=== PATIENT | male | born 1985 | race Caucasian/White ===

== ENCOUNTER 2021-02-19 07:12 | Emergency (ER) | payer SELFPAY ==
[2021-02-19 07:54] LABS: CHLORIDE,CL 107 mmol/L (98-107); SODIUM,NA 141 mmol/L (136-145)
[2021-02-19] MEDS: Sodium Chloride 0.9% 1,000 ML IV ONE (08:23)
[2021-02-19] MEDS: Iopamidol 612 MG/ML 100 ML Bottle IVPUSH ONE (08:50)
--- NOTE | 2021-02-19 10:12 | EDM.PDOC ---
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 [No Known Home Meds] 11/14/16 [History] Past Medical History - Infectious Disease History Infectious Disease History: Reports: Chicken Pox, Influenza - Past Surgical History Other Musculoskeletal Surgeries/Procedures:: surgery to left knee Social & Family History - Family History Family Medical History: No Pertinent Family History - Tobacco Use Tobacco Use Status *Q: Heavy Tobacco User Years of Tobacco use: 26 Packs/Tins Daily: 0.5 Used Tobacco, but Quit: No Second Hand Smoke Exposure: Yes - Caffeine Use Caffeine Use: Reports: Energy Drinks Caffeine Use Comment: 2 daily when consumes - usually does not drink them - Alcohol Use Days Per Week of Alcohol Use: 5 Number of Drinks Per Day: 2 Total Drinks Per Week: 10 Date of Last Drink: 02/18/21 Time of Last Drink: 21:00 - Recreational Drug Use Recreational Drug Use: Yes Drug Use in Last 12 Months: Yes Recreational Drug Type: Reports: Marijuana/Hashish Recreational Drug Use Frequency: Weekly ED ROS GENERAL - Review of Systems Review Of Systems: See Below Constitutional: Reports: Fever, Chills Respiratory: Reports: No Symptoms Cardiovascular: Reports: No Symptoms GI/Abdominal: Reports: Abdominal Pain : Reports: No Symptoms Musculoskeletal: Reports: No Symptoms ED EXAM, GI/ABD - Physical Exam Exam: See Below Exam Limited By: No Limitations General Appearance: Alert, WD/WN, Mild Distress Throat/Mouth: Normal Oropharynx Neck: Supple Respiratory/Chest: Lungs Clear Cardiovascular: Regular Rate, Rhythm GI/Abdominal Exam: Soft, No Distention, No Mass, Tender (Tender across low abdomen) Extremities: Normal Inspection Neurological: Alert, Oriented Psychiatric: Normal Affect, Normal Mood Course - Vital Signs Last Recorded V/S: Last Vital Signs Temp 97.9 F 02/19/21 07:15 Pulse 65 02/19/21 07:15 Resp 20 02/19/21 07:15 BP 138/78 02/19/21 07:25 Pulse Ox 100 02/19/21 07:15 - Orders/Labs/Meds Orders: Active Orders 24 hr Category Date Time Status Abdomen Pelvis w Cont [CT] Stat Exams 02/19/21 08:18 Taken CORONAVIRUS COVID-19 AG [CHEM] Stat Lab 02/19/21 09:59 Ordered Ciprofloxacin in D5W [Cipro in D5W 400 MG/200 ML] 400 Med 02/19/21 09:58 Active mg Premix Bag 1 bag IV ONETIME metroNIDAZOLE/Normal Saline [Flagyl in NS 500 MG/100 ML Med 02/19/21 09:58 Active ] 500 mg Premix Bag 1 bag IV ONETIME Medication Orders Ciprofloxacin/Dextrose 400 mg/ (Premix) 200 mls @ 200 mls/hr IV ONETIME ONE Stop: 02/19/21 10:57 Metronidazole 500 mg/ Premix 100 mls @ 100 mls/hr IV ONETIME ONE Stop: 02/19/21 10:57 Labs: Laboratory Tests 02/19/21 02/19/21 02/19/21 Range/Units 07:28 07:28 08:00 WBC 13.5 H (4.0-10.2) K/uL RBC 4.89 (4.33-5.41) M/uL Hgb 15.1 (13.1-16.8) g/dL Hct 45.9 (39.0-49.0) % MCV 93.9 (84.0-98.0) fL MCH 30.9 (28.2-33.3) pg MCHC 32.9 (31.7-36.0) g/dL RDW 13.2 (11.2-14.1) % Plt Count 234 (150-350) K/uL Neut % (Auto) 74.4 (45.0-80.0) % Lymph % (Auto) 13.7 (10.0-50.0) % [place] % (Auto) 11.0 (2.0-14.0) % Eos % (Auto) 0.6 (0.0-5.0) % Baso % (Auto) 0.3 (0.0-2.0) % Neut # (Auto) 10.05 H (1.40-7.00) K/uL Lymph # (Auto) 1.85 (0.50-3.50) K/uL [place] # (Auto) 1.49 H (0.00-1.00) K/uL Eos # (Auto) 0.08 (0.00-0.50) K/uL Baso # (Auto) 0.04 (0.00-0.20) K/uL Sodium 141 (136-145) mmol/L Potassium 4.1 (3.5-5.1) mmol/L Chloride 107 (98-107) mmol/L Carbon Dioxide 26.3 (21.0-32.0) mmol/L BUN 14 (7-18) mg/dL Creatinine 0.83 (0.51-1.17) mg/dL Est Cr Clr Drug Dosing TNP Estimated GFR (MDRD) > 60 mL/min Glucose 114 H (70-99) mg/dL Calcium 8.5 (8.5-10.1) mg/dL Total Bilirubin 2.0 H (0.2-1.0) mg/dL AST 21 (15-37) U/L ALT 34 (12-78) U/L Alkaline Phosphatase 64 (46-116) IU/L Total Protein 7.0 (6.4-8.2) g/dL Albumin 3.6 (3.4-5.0) g/dL Specimen Type Urinvoid Urine Color Dark yellow Urine Appearance Clear Urine pH 6.0 (5.0-9.0) Ur Specific [place] >= 1.030 (1.005-1.030) Urine Protein Negative (NEGATIVE) mg/dL Urine Glucose (UA) Negative (NEGATIVE) mg/dL Urine Ketones Negative (NEGATIVE) mg/dL Urine Occult Blood Negative (NEGATIVE) Urine Nitrite Negative (NEGATIVE) Urine Bilirubin Negative (NEGATIVE) Urine Urobilinogen 1.0 (0.2-1.0) E.U./dL Ur Leukocyte Esterase Negative (NEGATIVE) Urine RBC 0-5 /HPF Urine WBC 0-5 /HPF Ur Epithelial Cells Few /LPF Urine Bacteria Few (NONE TO FEW) /HPF Urine Mucus Many H (NEGATIVE) /LPF Meds: Medications Generic Name Dose Route Start Last Admin Trade Name Freq PRN Reason Stop Dose Admin Ciprofloxacin/Dextrose 400 mg/ 200 mls @ 200 mls/hr 02/19/21 09:58 Premix IV 02/19/21 10:57 ONETIME ONE Metronidazole 500 mg/ Premix 100 mls @ 100 mls/hr 02/19/21 09:58 IV 02/19/21 10:57 ONETIME ONE Discontinued Medications Generic Name Dose Route Start Last Admin Trade Name Freq PRN Reason Stop Dose Admin Sodium Chloride 1,000 mls @ 1,000 mls/hr 02/19/21 08:19 02/19/21 08:23 Normal Saline IV 02/19/21 09:18 1,000 mls/hr .BOLUS ONE Administration Iopamidol 100 ml 02/19/21 08:24 02/19/21 08:50 Iopamidol 612 Mg/Ml 100 Ml Bottle IVPUSH 02/19/21 08:25 100 ml ONETIME ONE Administration Iopamidol Confirm 02/19/21 08:29 Iopamidol 612 Mg/Ml 100 Ml Bottle Administered 02/19/21 08:30 Dose 100 ml .ROUTE .STK-MED ONE - Re-Assessments/Exams Free Text/Narrative Re-Assessment/Exam: 02/19/21 10:[address] per radiologist Sigmoid diverticulitis with local perforation Air seen outside of colon D/W Dr Whyte [facility] Will accept in transfer Pt given Zosyn in ER Pt declines ambulance transfer Risks and benefits d/w pt and he still desires to go by private car Departure - Departure Time of Disposition: 10:15 Disposition: DC/Tfer to Acute Hospital 02 Clinical Impression: Perforation of sigmoid colon due to diverticulitis - Discharge Information Referrals: PCP,Unknown [Primary Care Provider] - Sepsis Event Note (ED) - Evaluation Sepsis Screening Result: No Definite Risk - Focused Exam Vital Signs: Vital Signs Temp Pulse Resp BP Pulse Ox 02/19/21 07:25 138/78 02/19/21 07:15 97.9 F 65 20 152/89 H 100 - My Orders Last 24 Hours: My Active Orders 02/19/21 08:18 Abdomen Pelvis w Cont [CT] Stat 02/19/21 09:58 Ciprofloxacin in D5W [Cipro in D5W 400 MG/200 ML] 400 mg Premix Bag 1 bag IV ONETIME metroNIDAZOLE/Normal Saline [Flagyl in NS 500 MG/100 ML] 500 mg Premix Bag 1 bag IV ONETIME 02/19/21 09:59 CORONAVIRUS COVID-19 AG [CHEM] Stat - Assessment/Plan Last 24 Hours: My Active Orders 02/19/21 08:18 Abdomen Pelvis w Cont [CT] Stat 02/19/21 09:58 Ciprofloxacin in D5W [Cipro in D5W 400 MG/200 ML] 400 mg Premix Bag 1 bag IV ONETIME metroNIDAZOLE/Normal Saline [Flagyl in NS 500 MG/100 ML] 500 mg Premix Bag 1 bag IV ONETIME 02/19/21 09:59 CORONAVIRUS COVID-19 AG [CHEM] Stat
[2021-02-19] MEDS ORDERED: Piperacillin/Tazobactam 3.375 GM in Sodium Chloride 0.9% 100 ML IV SCH (10:15)
[2021-02-19] MEDS: Ciprofloxacin in D5W 400 MG in Premix Bag 1 BAG IV ONE ×2 (10:21)
[2021-02-19] MEDS: Piperacillin/Tazobactam 3.375 GM in Sodium Chloride 0.9% 100 ML IV ONE (10:21)
[2021-02-19] MEDS: metroNIDAZOLE/Normal Saline 500 MG in Premix Bag 1 BAG IV ONE (10:22)
[2021-02-19] MEDS: Iopamidol 612 MG/ML 100 ML Bottle ONE (10:22)
[2021-02-19 10:34] VITALS: BP 149/89; PULSE 64
== END 2021-02-19 11:10 ==
LOC: LL.ED 07:12
DX: K57.20 Diverticulitis of large intestine with perforation and abscess without bleeding (principal); Z20.822 Contact with and (suspected) exposure to COVID-19; Z88.5 Allergy status to narcotic agent; Z72.0 Tobacco use
CPT/HCPCS: 36415; 74177; 80053; 81001; 85025; 87635; 96365; 99284; 99285; J2543; J7030; Q9967; U0002

== ENCOUNTER 2021-05-05 20:38 | Emergency (ER) | payer BC ==
[2021-05-05] MEDS ORDERED: fentaNYL 50 MCG/ML SDV IVPUSH ONE ×2 (21:00→22:48)
[2021-05-05] MEDS: Sodium Chloride 0.9% 10 ML Syringe FLUSH PRN ×2 (21:10→23:00)
[2021-05-05 21:36] LABS: CHLORIDE,CL 104 mmol/L (98-107); SODIUM,NA 144 mmol/L (136-145)
[2021-05-05] MEDS ORDERED: Iopamidol 612 MG/ML 100 ML Bottle IVPUSH STA (21:37)
--- NOTE | 2021-05-05 21:38 | EDM.PDOC ---
ED HPI GENERAL MEDICAL PROBLEM - General Chief Complaint: General Stated Complaint: ABDOMINAL PAIN Time Seen by Provider: 05/05/21 21:17 Source of Information: Reports: Patient - History of Present Illness INITIAL COMMENTS - FREE TEXT/NARRATIVE: Jozef is a 35 y/o male who presents to the ER with lower abdominal pain that started about 2:30 pm today. He reported having 4 normal BMs this AM and then ab out 2:30 pm her started to have liquid stools that were clear with yellow flecks of stool about every hour. He denied any fever. He did eat today, but his appetite was decreased. No vomiting. He was hospitalized in January 2021 at with Acute Diverticulitis. He has not had any problems since that flare. Bilateral Lower Abdomen Pain Score (Numeric/FACES): 7 - Related Data Allergies Allergy/AdvReac Type Severity Reaction Status Date / Time hydrocodone [From Vicodin] Allergy Hives Verified 05/05/21 20:58 Home Meds: Home Meds Ciprofloxacin HCl [Cipro] 500 mg PO BID #20 tablet 05/05/21 [Rx] Ondansetron [Zofran Odt] 8 mg PO Q8H PRN #10 tab.rapdis 05/05/21 [Rx] metroNIDAZOLE [Flagyl] 500 mg PO Q8H 10 Days #30 tab 05/05/21 [Rx] traMADol [Ultram] 50 mg PO Q6H PRN #10 tab 05/05/21 [Rx] Past Medical History - Infectious Disease History Infectious Disease History: Reports: Chicken Pox, Influenza - Past Surgical History Other Musculoskeletal Surgeries/Procedures:: surgery to left knee Social & Family History - Family History Family Medical History: No Pertinent Family History - Tobacco Use Tobacco Use Status *Q: Current Every Day Tobacco User Years of Tobacco use: 26 Packs/Tins Daily: 0.5 Second Hand Smoke Exposure: No - Caffeine Use Caffeine Use: Reports: Energy Drinks Caffeine Use Comment: 2 daily when consumes - usually does not drink them - Recreational Drug Use Recreational Drug Use: No Recreational Drug Type: Reports: Marijuana/Hashish Recreational Drug Use Frequency: Daily ED ROS GENERAL - Review of Systems Review Of Systems: See Below Constitutional: Reports: Malaise, Decreased Appetite HEENT: Reports: No Symptoms Respiratory: Reports: No Symptoms Cardiovascular: Reports: No Symptoms Endocrine: Reports: No Symptoms GI/Abdominal: Reports: Abdominal Pain, Diarrhea, Decreased Appetite. Denies: Nausea, Vomiting : Reports: No Symptoms Musculoskeletal: Reports: No Symptoms Skin: Reports: No Symptoms Neurological: Reports: No Symptoms Psychiatric: Reports: No Symptoms Hematologic/Lymphatic: Reports: No Symptoms Immunologic: Reports: No Symptoms ED EXAM, GENERAL - Physical Exam Exam: See Below General Appearance: Alert, WD/WN, No Apparent Distress (Adult male) Ears: Hearing Grossly Normal Nose: Normal Inspection Throat/Mouth: Normal Inspection, Normal Voice Head: Atraumatic, Normocephalic Neck: Supple Respiratory/Chest: No Respiratory Distress, Lungs Clear, Chest Non-Tender Cardiovascular: Normal Peripheral Pulses, Regular Rate, Rhythm, No Murmur GI/Abdominal: Soft, No Distention, Other (Bowels sounds hypoactive in the LLQ, no rebound tenderness) (Male) Exam: Deferred Rectal (Males) Exam: Deferred Back Exam: Normal Inspection, Paraspinal Tenderness Extremities: Normal Range of Motion, No Pedal Edema, Normal Capillary Refill Neurological: Alert, Oriented, CN II-XII Intact, Normal Cognition, No Motor/Sensory Deficits Psychiatric: Normal Affect, Normal Mood Skin Exam: Warm, Dry, Intact, Normal Color Course - Vital Signs Text/Narrative:: 2116 The patient was seen by the CARE PROGRAM RESIDENT. Labs ordered. He was given Fentanyl 50mcg IVP for pain. 2129 Noted WBC 22.3, Neuts=84.8%, UA Protein trace. Additional labs ordered including Lactic Acid, BC x 2. 2240 CT results pending. BP elevated, cannot recall BP med, but he frequently forgets it. Lisinopril 20mg po given. Abdominal pain returning, Fentanyl 50mcg IVP repeated and Toradol 30mg IVP given for pain. Will given Cipro 400mg IVPB. 2344 CT reviewed. Results reviewed with pt, note early diverticulitis. Will given Flagyl 500mg po x 1 dose. Will then send home with oral abx, pain meds, and antiemetics. Patient reported improvement in his pain. He was given written discharge instructions left the ER in stable condition. Last Recorded V/S: Last Vital Signs Temp 37.3 C 05/05/21 20:39 Pulse 68 05/05/21 22:53 Resp 16 05/05/21 22:53 BP 167/91 H 05/05/21 22:53 Pulse Ox 99 05/05/21 22:53 - Orders/Labs/Meds Orders: Active Orders 24 hr Category Date Time Status Abdomen Pelvis w Cont [CT] Stat Exams 05/05/21 21:24 Taken CULTURE BLOOD [BC] Stat Lab 05/05/21 21:30 Received CULTURE BLOOD [BC] Stat Lab 05/05/21 21:40 Received Sodium Chloride 0.9% [Saline Flush] Med 05/05/21 21:00 Active 10 ml FLUSH ASDIRECTED PRN Blood Culture x2 Reflex Set [OM.PC] Stat Oth 05/05/21 21:24 Ordered Saline Lock Insert [OM.PC] Routine Oth 05/05/21 21:00 Ordered Medication Orders Sodium Chloride (Sodium Chloride 0.9% 10 Ml Syringe) 10 ml FLUSH ASDIRECTED PRN PRN Reason: Keep Vein Open Last Admin: 05/05/21 21:10 Dose: 10 ml Documented by: VIJAY Labs: Laboratory Tests 05/05/21 05/05/21 05/05/21 Range/Units 21:00 21:05 21:05 WBC 22.3 H (4.0-10.2) K/uL RBC 5.35 (4.33-5.41) M/uL Hgb 16.5 (13.1-16.8) g/dL Hct 47.2 (39.0-49.0) % MCV 88.2 (84.0-98.0) fL MCH 30.8 (28.2-33.3) pg MCHC 35.0 (31.7-36.0) g/dL RDW 13.1 (11.2-14.1) % Plt Count 279 (150-350) K/uL Neut % (Auto) 84.8 H (45.0-80.0) % Lymph % (Auto) 7.6 L (10.0-50.0) % [place] % (Auto) 7.4 (2.0-14.0) % Eos % (Auto) 0.1 (0.0-5.0) % Baso % (Auto) 0.1 (0.0-2.0) % Neut # (Auto) 18.89 H (1.40-7.00) K/uL Lymph # (Auto) 1.70 (0.50-3.50) K/uL [place] # (Auto) 1.65 H (0.00-1.00) K/uL Eos # (Auto) 0.02 (0.00-0.50) K/uL Baso # (Auto) 0.03 (0.00-0.20) K/uL Sodium 144 (136-145) mmol/L Potassium 3.9 (3.5-5.1) mmol/L Chloride 104 (98-107) mmol/L Carbon Dioxide 25.1 (21.0-32.0) mmol/L BUN 15 (7-18) mg/dL Creatinine 0.82 (0.51-1.17) mg/dL Est Cr Clr Drug Dosing 162.55 mL/min Estimated GFR (MDRD) > 60 mL/min Glucose 105 H (70-99) mg/dL Lactic Acid (0.4-2.0) mmol/L Calcium 9.2 (8.5-10.1) mg/dL Total Bilirubin 2.5 H (0.2-1.0) mg/dL AST 24 (15-37) U/L ALT 32 (12-78) U/L Alkaline Phosphatase 72 (46-116) IU/L Total Protein 8.0 (6.4-8.2) g/dL Albumin 4.4 (3.4-5.0) g/dL Specimen Type Urinvoid Urine Color Yellow (YELLOW) Urine Appearance Clear (CLEAR) Urine pH 6.0 (5.0-9.0) Ur Specific [place] 1.025 (1.005-1.030) Urine Protein Trace H (NEGATIVE) mg/dL Urine Glucose (UA) Negative (NEGATIVE) mg/dL Urine Ketones Negative (NEGATIVE) mg/dL Urine Occult Blood Negative (NEGATIVE) Urine Nitrite Negative (NEGATIVE) Urine Bilirubin Negative (NEGATIVE) Urine Urobilinogen 1.0 (0.2-1.0) E.U./dL Ur Leukocyte Esterase Negative (NEGATIVE) Urine RBC 0-5 /HPF Urine WBC 0-5 /HPF Ur Epithelial Cells Few /LPF Urine Bacteria Rare (NONE TO FEW) /HPF Urine Mucus Moderate H (NEGATIVE) /LPF 05/05/ Range/Units 21:05 WBC (4.0-10.2) K/uL RBC (4.33-5.41) M/uL Hgb (13.1-16.8) g/dL Hct (39.0-49.0) % MCV (84.0-98.0) fL MCH (28.2-33.3) pg MCHC (31.7-36.0) g/dL RDW (11.2-14.1) % Plt Count (150-350) K/uL Neut % (Auto) (45.0-80.0) % Lymph % (Auto) (10.0-50.0) % [place] % (Auto) (2.0-14.0) % Eos % (Auto) (0.0-5.0) % Baso % (Auto) (0.0-2.0) % Neut # (Auto) (1.40-7.00) K/uL Lymph # (Auto) (0.50-3.50) K/uL [place] # (Auto) (0.00-1.00) K/uL Eos # (Auto) (0.00-0.50) K/uL Baso # (Auto) (0.00-0.20) K/uL Sodium (136-145) mmol/L Potassium (3.5-5.1) mmol/L Chloride (98-107) mmol/L Carbon Dioxide (21.0-32.0) mmol/L BUN (7-18) mg/dL Creatinine (0.51-1.17) mg/dL Est Cr Clr Drug Dosing mL/min Estimated GFR (MDRD) mL/min Glucose (70-99) mg/dL Lactic Acid 1.2 (0.4-2.0) mmol/L Calcium (8.5-10.1) mg/dL Total Bilirubin (0.2-1.0) mg/dL AST (15-37) U/L ALT (12-78) U/L Alkaline Phosphatase (46-116) IU/L Total Protein (6.4-8.2) g/dL Albumin (3.4-5.0) g/dL Specimen Type Urine Color (YELLOW) Urine Appearance (CLEAR) Urine pH (5.0-9.0) Ur Specific [place] (1.005-1.030) Urine Protein (NEGATIVE) mg/dL Urine Glucose (UA) (NEGATIVE) mg/dL Urine Ketones (NEGATIVE) mg/dL Urine Occult Blood (NEGATIVE) Urine Nitrite (NEGATIVE) Urine Bilirubin (NEGATIVE) Urine Urobilinogen (0.2-1.0) E.U./dL Ur Leukocyte Esterase (NEGATIVE) Urine RBC /HPF Urine WBC /HPF Ur Epithelial Cells /LPF Urine Bacteria (NONE TO FEW) /HPF Urine Mucus (NEGATIVE) /LPF Meds: Medications Generic Name Dose Route Start Last Admin Trade Name Freq PRN Reason Stop Dose Admin Sodium Chloride 10 ml 05/05/21 21:00 05/05/21 23:00 Sodium Chloride 0.9% 10 Ml Syringe FLUSH 10 ml ASDIRECTED PRN Administration Keep Vein Open Discontinued Medications Generic Name Dose Route Start Last Admin Trade Name Freq PRN Reason Stop Dose Admin Fentanyl 50 mcg 05/05/21 21:00 05/05/21 21:10 Fentanyl 50 Mcg/Ml Sdv IVPUSH 05/05/21 21:01 50 mcg ONETIME ONE Administration Fentanyl 50 mcg 05/05/21 22:41 05/05/21 23:15 Fentanyl 100 Mcg/2 Ml Sdv IVPUSH 05/05/21 22:42 Not Given ONETIME ONE Fentanyl 50 mcg 05/05/21 22:48 05/05/21 23:00 Fentanyl 50 Mcg/Ml Sdv IVPUSH 05/05/21 22:49 50 mcg ONETIME ONE Administration Ciprofloxacin/Dextrose 400 mg/ 200 mls @ 200 mls/hr 05/05/21 22:40 05/05/21 23:09 Premix IV 05/05/21 23:39 200 mls/hr ONETIME ONE Administration Iopamidol 100 ml 05/05/21 21:37 05/05/21 21:55 Iopamidol 612 Mg/Ml 100 Ml Bottle IVPUSH 05/05/21 21:38 100 ml ONETIME STA Administration Ketorolac Tromethamine 30 mg 05/05/21 22:41 05/05/21 22:49 Ketorolac 30 Mg/Ml Sdv IVPUSH 05/05/21 22:42 30 mg ONETIME ONE Administration Lisinopril 20 mg 05/05/21 22:28 05/05/21 22:35 Lisinopril 10 Mg Tab PO 05/05/21 22:29 20 mg ONETIME ONE Administration - Radiology Interpretation Free Text/Narrative:: CT Abd/Pelvis W=notes early diverticulitis, (See final report) Departure - Departure Time of Disposition: 23:50 Disposition: Home, Self-Care 01 Condition: Good Clinical Impression: Diverticulitis - Discharge Information *PRESCRIPTION DRUG MONITORING PROGRAM REVIEWED*: No *COPY OF PRESCRIPTION DRUG MONITORING REPORT IN PATIENT YVES: No Prescriptions: Ciprofloxacin HCl [Cipro] 500 mg PO BID #20 tablet metroNIDAZOLE [Flagyl] 500 mg PO Q8H 10 Days #30 tab traMADol [Ultram] 50 mg PO Q6H PRN #10 tab PRN Reason: Pain Ondansetron [Zofran Odt] 8 mg PO Q8H PRN #10 tab.rapdis PRN Reason: Nausea Instructions: Diverticulitis Referrals: PCP,Unknown [Ordering Only Provider] - 2 Days Forms: ED Department Discharge, ED Return to Work/School Form Additional Instructions: -Cipro 500mg oral 2x daily for 10 days #20(Rx) -Flagyl 500mg oral 3x daily for 10 days #30(Rx) -Tramadol 50mg oral every 6 hours as needed for pain #10(ER) -Ondanestron ODT 8mg oral every 8 hours as needed for nausea #10(ER) -Also may use ibuprofen or acetaminophen as needed for pain -Eat a light, non-irritating diet. See Diverticular diet guidelines. -Rest as needed -Make an appt to see your PCP at the [facility] in 2-3 days for a follow up and repeat labs. Sepsis Event Note (ED) - Evaluation Sepsis Screening Result: No Definite Risk - Focused Exam Vital Signs: Vital Signs Temp Pulse Resp BP BP Pulse Ox 05/05/21 22:53 68 16 167/91 H 99 05/05/21 22:35 179/92 H 05/05/21 22:23 72 18 179/92 H 99 05/05/21 21:53 64 16 179/114 H 99 05/05/21 21:27 73 18 152/100 H 96 05/05/21 21:13 73 16 170/91 H 99 05/05/21 20:53 77 16 163/96 H 98 05/05/21 20:42 80 18 171/113 H 98 05/05/21 20:39 37.3 C 76 18 171/113 H 97 - My Orders Last 24 Hours: My Active Orders 05/05/21 21:00 Sodium Chloride 0.9% [Saline Flush] 10 ml FLUSH ASDIRECTED PRN Saline Lock Insert [OM.PC] Routine 05/05/21 21:24 Abdomen Pelvis w Cont [CT] Stat Blood Culture x2 Reflex Set [OM.PC] Stat 05/05/21 21:30 CULTURE BLOOD [BC] Stat 05/05/21 21:40 CULTURE BLOOD [BC] Stat - Assessment/Plan Last 24 Hours: My Active Orders 05/05/21 21:00 Sodium Chloride 0.9% [Saline Flush] 10 ml FLUSH ASDIRECTED PRN Saline Lock Insert [OM.PC] Routine 05/05/21 21:24 Abdomen Pelvis w Cont [CT] Stat Blood Culture x2 Reflex Set [OM.PC] Stat 05/05/21 21:30 CULTURE BLOOD [BC] Stat 05/05/21 21:40 CULTURE BLOOD [BC] Stat Assessment:: 1)Diverticulitis Plan: As above
[2021-05-05] MEDS ORDERED: Lisinopril 10 MG Tab PO ONE (22:28)
[2021-05-05] MEDS ORDERED: Ciprofloxacin in D5W 400 MG in Premix Bag 1 BAG IV ONE ×2 (22:40)
[2021-05-05] MEDS ORDERED: fentaNYL 100 MCG/2 ML SDV IVPUSH ONE (22:41)
[2021-05-05] MEDS ORDERED: Ketorolac 30 MG/ML SDV IVPUSH ONE (22:41)
[2021-05-06 00:40] VITALS: BP 171/90; PULSE 69
== END 2021-05-06 00:20 | disposition home or self-care (01) ==
LOC: LL.ED 20:38
DX: K57.32 Diverticulitis of large intestine without perforation or abscess without bleeding (principal); Z72.0 Tobacco use; Z88.5 Allergy status to narcotic agent
CPT/HCPCS: 36415; 74177; 80053; 81001; 83605; 85025; 87040; 87077; 96365; 96375; 96376; 99284; 99284-25; A9270-GY; J0744; J1885; J3010; Q9967

== ENCOUNTER 2021-05-29 08:54 | Day surgery (SDC) | payer BC ==
[~2021-05-29 08:54] MED LIST: Propofol 200 MG/20 ML SDV ONE
[2021-05-29] MEDS: Lactated Ringers 1,000 ML IV SCH (09:32)
--- NOTE | 2021-05-29 11:04 | PCM.PN ---
- General Info Date of Service: 05/29/21 - Review of Systems Systems Review Comment:: 35-year-old male with history of intermittent rectal bleeding as well as history of diverticulitis referred for colonoscopy. His last colon exam was about 5 years ago. There is a known family history of diverticular disease. The proposed colonoscopy is discussed with the patient. Risks such as but not limited to bleeding and GI injury reviewed. He agrees to proceed. Recent history and physical is reviewed and no significant changes are noted. - Patient Data Vitals - Most Recent: Last Vital Signs Temp 98.2 F 05/29/21 08:00 Pulse 54 L 05/29/21 08:00 Resp 20 05/29/21 08:00 BP 133/92 H 05/29/21 08:00 Pulse Ox 96 05/29/21 08:00 Weight - Most Recent: 104.78 kg Med Orders - Current: Current Medications Lactated Ringer's (Ringers, Lactated) 1,000 mls @ 125 mls/hr IV ASDIRECTED [facility] Last Admin: 05/29/21 09:32 Dose: 125 mls/hr Documented by: Discontinued Medications Propofol (Propofol 200 Mg/20 Ml Sdv) Confirm Administered Dose 400 mg .ROUTE .STK-MED ONE Stop: 05/29/21 08:14 Sepsis Event Note - Focused Exam Vital Signs: Vital Signs Temp Pulse Resp BP Pulse Ox 05/29/21 08:00 98.2 F 54 L 20 133/92 H 96 - Problem List Review Problem List Initiated/Reviewed/Updated: Yes - Assessment Assessment:: History of rectal bleeding History of diverticulitis - Plan Plan:: Colonoscopy
[2021-05-29] MEDS ORDERED: Propofol 200 MG/20 ML SDV ONE ×2 (11:12→11:47)
--- NOTE | 2021-05-29 11:48 | PCM.OPNOTE ---
- General Post-Op/Procedure Note Date of Surgery/Procedure: 05/29/21 Operative Procedure(s): Colonoscopy Findings: Moderate degree of sigmoid diverticulosis without acute inflammation stricturing or other complication Colon and terminal ileum otherwise normal Pre Op Diagnosis: Abdominal pain. Rectal bleeding Post-Op Diagnosis: Sigmoid diverticulosis Anesthesia Technique: MAC Primary Surgeon: Calos Francisco Pathology: none EBL in mLs: 0 Complications: None Condition: Good
--- NOTE | 2021-05-29 12:13 | OR ---
Date of Procedure: 05/29/2021 PREOPERATIVE DIAGNOSES: 1. Rectal bleeding. 2. History of abdominal pain. POSTOPERATIVE DIAGNOSIS: Sigmoid diverticulosis. OPERATION PERFORMED: Colonoscopy. INDICATIONS FOR SURGERY: This 35-year-old male has had recent episodes of presumed diverticulitis with abdominal pain requiring hospitalization. He also has episodes of rectal bleeding. FINDINGS: The patient has in the sigmoid colon region a moderate degree of diverticulosis. Multiple diverticula are seen, although there is no acute inflammation or stricturing at this time. The remainder of the colon and rectum appear normal. The terminal ileum also appears normal. DESCRIPTION OF PROCEDURE: The patient was taken to the operating room. He was given intravenous sedation, and with him in the left lateral decubitus position, digital rectal exam was performed showing no rectal masses. The Olympus colonoscope was inserted into the rectum. Retroflexed examination of the rectal canal was performed. The scope was then carefully advanced through the entire length of the colon until the cecum was reached. Cecal acquisition was confirmed by noting the normal internal cecal anatomy including the appendiceal orifice and the ileocecal valve. The ileocecal valve was cannulated and the terminal ileum examined and appeared normal. The scope was then slowly withdrawn sequentially re-examining the colonic segments until the entire colon and rectum had been fully examined. The scope was removed, and the patient was taken from the operating room in satisfactory condition. ESTIMATED BLOOD LOSS: 0. COMPLICATIONS: None. PROGNOSIS: Good. TIFFANI Francisco MD /[id number]
[2021-05-29 16:19] VITALS: BP 140/76; PULSE 51
== END 2021-05-29 12:42 | disposition home or self-care (01) ==
LOC: LL.SDS 08:54
PROVIDERS: ATTEND Surgery
DX: K57.31 Diverticulosis of large intestine without perforation or abscess with bleeding (principal); G43.909 Migraine, unspecified, not intractable, without status migrainosus; F17.200 Nicotine dependence, unspecified, uncomplicated; F41.9 Anxiety disorder, unspecified; F32.9 Major depressive disorder, single episode, unspecified; Z88.5 Allergy status to narcotic agent
CPT/HCPCS: 00811; J2704; J7120

== ENCOUNTER 2022-04-16 14:44 | Emergency (ER) | payer BC, OTHER ==
[2022-04-16 15:03] VITALS: BP 147/84; PULSE 65
== END 2022-04-16 16:05 | disposition home or self-care (01) ==
LOC: LL.ED 14:44
DX: S81.851A Open bite, right lower leg, initial encounter (principal); I10 Essential (primary) hypertension; Z88.5 Allergy status to narcotic agent; W64.XXXA Exposure to other animate mechanical forces, initial encounter
CPT/HCPCS: 36415; 85025; 85379; 93971; 99283; 99284-25

== ENCOUNTER 2022-07-12 09:49 | Emergency (ER) | payer BC, MEDICAID ==
[2022-07-12 10:01] VITALS: BP 152/76; PULSE 64
== END 2022-07-12 10:50 | disposition home or self-care (01) ==
LOC: LL.ED 09:49
DX: L03.317 Cellulitis of buttock (principal); I10 Essential (primary) hypertension; F17.210 Nicotine dependence, cigarettes, uncomplicated; Z88.5 Allergy status to narcotic agent; Z79.899 Other long term (current) drug therapy
CPT/HCPCS: 99282; 99283

== ENCOUNTER 2022-09-27 03:22 | Emergency (ER) | payer BC, MEDICAID ==
[2022-09-27 03:32] VITALS: PULSE 62
[2022-09-27] MEDS ORDERED: Ketorolac 30 MG/ML SDV IM ONE (03:52)
[2022-09-27] MEDS ORDERED: cloNIDine 0.1 MG Tab PO ONE ×2 (04:08→04:18)
[2022-09-27 05:53] VITALS: BP 167/96
== END 2022-09-27 04:50 | disposition home or self-care (01) ==
LOC: LL.ED 03:22
DX: K08.89 Other specified disorders of teeth and supporting structures (principal); G89.29 Other chronic pain; I10 Essential (primary) hypertension; Z88.5 Allergy status to narcotic agent
CPT/HCPCS: 96372; 99282; A9270; J1885; 99284

== ENCOUNTER 2022-09-27 12:40 | Emergency (ER) | payer BC, MEDICAID ==
[2022-09-27 12:52] VITALS: PULSE 52
[2022-09-27 12:57] VITALS: BP 150/98
== END 2022-09-27 13:00 | disposition home or self-care (01) ==
LOC: LL.ED 12:40
DX: H66.91 Otitis media, unspecified, right ear (principal); I10 Essential (primary) hypertension; Z88.5 Allergy status to narcotic agent
CPT/HCPCS: 99282; 99283

== ENCOUNTER 2022-10-25 08:29 | Emergency (ER) | payer BC, MEDICAID ==
[2022-10-25] MEDS ORDERED: Sodium Chloride 0.9% 10 ML Syringe FLUSH PRN (08:49)
[2022-10-25] MEDS: Sodium Chloride 0.9% 1,000 ML IV ONE ×2 (09:02→10:10)
[2022-10-25 09:16] LABS: ANION GAP 8.9 meq/L (7-15)
[2022-10-25 12:20] VITALS: BP 152/67; PULSE 67
== END 2022-10-25 13:00 | disposition home or self-care (01) ==
LOC: LL.ED 08:29
DX: J10.1 Influenza due to other identified influenza virus with other respiratory manifestations (principal); I10 Essential (primary) hypertension; Z88.5 Allergy status to narcotic agent; Z79.899 Other long term (current) drug therapy; Z87.891 Personal history of nicotine dependence
CPT/HCPCS: 36415; 71046; 80053; 81001; 83605; 84484; 85025; 93005; 96360; 96361; 99283; 99285-25; J7030

== ENCOUNTER → 2023-01-13 | Emergency (ER) | payer BC, MEDICAID | LOC: LL.ED 02:18 | DX: K08.89 Other specified disorders of teeth and supporting structures (principal); I10 Essential (primary) hypertension | CPT/HCPCS: 96372; 99282 ==

== ENCOUNTER 2023-01-17 12:28 | Emergency (ER) | payer BC, MEDICAID ==
[2023-01-17] MEDS: Cyclobenzaprine 10 MG Tab PO ONE (13:13)
[2023-01-17] MEDS: Ketorolac 30 MG/ML SDV IM ONE (13:15)
[2023-01-17] MEDS: Take Home: Cyclobenzaprine 10 MG Tab, 4 Tab Pack PO ONE (13:59)
[2023-01-17 16:24] VITALS: BP 158/95; PULSE 49
== END 2023-01-17 13:57 | disposition home or self-care (01) ==
LOC: SUPCPDRO 12:28 → LL.ED 12:28
DX: M26.621 Arthralgia of right temporomandibular joint (principal); I10 Essential (primary) hypertension; F17.290 Nicotine dependence, other tobacco product, uncomplicated; Z88.5 Allergy status to narcotic agent; Z79.899 Other long term (current) drug therapy
CPT/HCPCS: 96372; 99283; A9270-GY; J1885

== ENCOUNTER 2023-07-11 16:30 | Emergency (ER) | payer BC ==
[2023-07-11 16:34] VITALS: BP 160/82
[2023-07-11 17:26] LABS: CORONAVIRUS COVID-19 NAA NEGATIVE (NEGATIVE); INFLUENZA A NAA NEGATIVE (NEGATIVE); INFLUENZA B NAA NEGATIVE (NEGATIVE); RESPIRATORY SYNCYTIAL VIR NAA NEGATIVE (NEGATIVE)
[2023-07-11 17:28] VITALS: PULSE 78
== END 2023-07-11 18:00 | disposition home or self-care (01) ==
LOC: LL.ED 16:30
DX: B34.9 Viral infection, unspecified (principal); I10 Essential (primary) hypertension; Z88.5 Allergy status to narcotic agent; Z79.899 Other long term (current) drug therapy; Z72.0 Tobacco use; Z20.822 Contact with and (suspected) exposure to COVID-19
CPT/HCPCS: 0241U; 87081; 87430; 99283